=== PATIENT | female | born 1980 | race Caucasian/White ===

== ENCOUNTER 2021-02-15 04:01 | Emergency (ER) | payer MEDICAID, OTHER, SELFPAY ==
[~2021-02-15] VITALS: Ht 157.5 cm; Wt 70.0 kg
--- NOTE | 2021-02-15 04:22 | NUR ---
BIB EMS. PT FROM [place], STATES HAVING BILAT LOWER QUAD AB PAIN, STARTING AT 1600 YESTERDAY. PT STATES HAVING HISTORY OF GALLSTONES. PT STATES HAVING BLOOD IN URINE AND PAINFUL URINATION WELL. ERP AND PRECISION STRUCTURAL METAL FITTER AT BEDSIDE FOR ASSESSMENT WELL. PT UNDERSTANDING AND ACCEPTING OF POC. PT AMBULATED TO RESTROOM FOR URINE SAMPLE
[2021-02-15] MEDS ORDERED: ONDANSETRON 2MG/ML, 2ML IVPush ONE (04:30)
[2021-02-15] MEDS ORDERED: KETOROLAC 30 MG/1 ML IVPush ONE (04:30)
[2021-02-15] MEDS ORDERED: KETOROLAC 30 MG/1 ML ONE (04:30)
[2021-02-15] MEDS ORDERED: ONDANSETRON 2MG/ML, 2ML ONE (04:30)
[2021-02-15 04:39] LABS: MICROSCOPIC AUTO
--- NOTE | 2021-02-15 04:39 | NUR ---
PT TO CT AT THIS TIME. [facility] SENT
[2021-02-15 05:10] LABS: BASOPHILS % (AUTO) 0 % (0-1); EOSINOPHILS % (AUTO) 1 % (1-7); LYMPHOCYTES % (AUTO) 15 % (22-44); MEAN CORPUSCULAR HEMOGLOBIN 31.4 pg (27.0-34.8); MEAN CORPUSCULAR HGB CONC 34.5 g/dL (32.4-35.8); MEAN PLATELET VOLUME 7.8 fL (7.4-10.4); MONOCYTES % (AUTO) 6 % (2-9); NEUTROPHILS % (AUTO) 77 % (42-75); PLATELET COUNT 305 x10^3/uL (130-400); RED BLOOD COUNT 4.71 x10^6/uL (3.82-5.3); RED CELL DISTRIBUTION WIDTH 12.7 % (9.6-15.2)
[2021-02-15 05:13] LABS: MD NO
[2021-02-15 05:16] LABS: ALANINE AMINOTRANSFERASE 22 U/L (12-78); ALBUMIN 3.6 g/dL (3.4-5.0); ANION GAP 6 mmol/L (5-15); CALCIUM 8.6 mg/dL (8.5-10.1); CHLORIDE 109 mmol/L (98-107); CREATININE 0.78 mg/dL (0.55-1.02)
[2021-02-15 05:21] LABS: ALKALINE PHOSPHATASE 69 U/L (45-117); BILIRUBIN,TOTAL 0.6 mg/dL (0.2-1.0); TOTAL PROTEIN 7.2 g/dL (6.4-8.2)
[2021-02-15 06:12] VITALS: BP 96/54
[2021-02-15] MEDS ORDERED: CEFTRIAXONE 1,000 MG in DEXTROSE 5% 50 ML IVPB ONE (06:30)
== END 2021-02-15 06:34 | disposition home or self-care (01) ==
LOC: ED 06:28
DX: N13.2 Hydronephrosis with renal and ureteral calculous obstruction (principal); R10.31 Right lower quadrant pain; R10.32 Left lower quadrant pain
CPT/HCPCS: 36415; 74176; 80053; 81001; 83690; 84703; 85025; 87086; 96365; 96375; 99284; J0696; J1885; J2405